=== PATIENT | female | born 1990 | race Caucasian/White ===

== ENCOUNTER 2016-10-28 20:10 | Emergency (ER) | payer OTHER ==
--- NOTE | 2016-10-28 21:15 | ED CLINICAL REPORT ---
Clinical Report - Physicians/Mid Levels [facility] [address] [place] [address] 10/28/2016 20:10 Patient: AILYN SOLORZANO Time Seen: 20:44; initial patient contact, initial documentation, patient care assumed. Arrived- By ambulance. Not in custody. Historian- patient. HISTORY OF PRESENT ILLNESS Chief Complaint: ANXIOUS and SELF INJURY and AGITATED and ANGRY. This started just prior to arrival. The patient has experienced situational problems related to significant other (other family members, everyone fighting lately). She has not exhibited a behavior change or is compliant with medication. 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 No recent drug use or alcohol consumption. Has been angry but eating or sleeping and not been depressed. She has had anxiety. No unusual behavior, delusions, suicidal thoughts or hallucinations. She inflicted self-injury. The symptoms are described as mild. An injury is present. Location- left forearm (pt bit herself). Similar symptoms previously: Recent medical care: Not recently seen/assessed. REVIEW OF SYSTEMS No chest pain or abdominal pain. All systems otherwise negative, except as recorded above. PAST HISTORY See nurses notes. ( PROBLEMS: Headache. Depression. Mental Illness. Cerebral Palsy. --20:18 Pablo, Sandy, R.N.). SOCIAL HISTORY Never smoker. History of occasional drug use: marijuana. No alcohol use. Has social support. Has place to stay. FAMILY HISTORY Negative. ADDITIONAL NOTES The nursing notes have been reviewed with agreement regarding the chief complaint, HPI, ROS, PMH and patient medications and allergies. PHYSICAL EXAM Appearance: Alert. No acute distress. Appearance is normal. Eyes: Pupils equal, round and reactive to light. Neck: Normal inspection. Neck supple. CVS: Normal heart rate and rhythm. Heart sounds normal. Respiratory: Breath sounds normal. Chest nontender. Abdomen: Soft and nontender. Back: No tenderness. Skin: Skin warm and dry. Normal skin color. Normal skin turgor. (superficial mild erythema bite amrik noted to L wrist/fa area, no break in skin). Extremities: Extremities exhibit normal ROM. No lower extremity edema. Psych / Neuro: Oriented X 3. Mood and affect normal. Speech normal. Cognition normal. Thought process and content normal. Insight and judgement normal. Cranial nerves normal (as tested). No cerebellar findings. No motor deficit. No sensory deficit. PROGRESS AND PROCEDURES Course of Care: pt has short rosa for narcs and er visits, see report for full details had discussion with pt re home issues, tx, pt denies thoughts of suicide, did admit to biting her arm out of frustration, denies biting anyone else, denies any more thoughts of self harm and really wants to go home spoke with nurse re dc, and nurse thinks pt is ok to be dc. Differential Diagnosis: Other possible considerations: psych, si, depression, anxiety, anger issues, self harm, human bite, substance abuse. Above considerations are based on history and physical exam. Differential diagnosis was discussed with patient. Disposition: Discharged home in good and improved condition (21:15). Condition: good and stable. CLINICAL IMPRESSION Anxiety reaction. INSTRUCTIONS Warnings: GENERAL WARNINGS: Return or contact your physician immediately if your condition worsens or changes unexpectedly, if not improving as expected, or if other problems arise. Specifically return if problem worsens. Follow-up: Follow up with your doctor in about three days as needed. Call for an appointment. Summary of care provided to patient. Understanding of the discharge instructions verbalized by patient. (Electronically signed by Madonna Ferrer A.R.N.P. 10/29/2016 12:55)
--- NOTE | 2016-10-28 21:15 | ED CLINICAL REPORT ---
Clinical Report - Physicians/Mid Levels [facility] [address] [place] [address] 10/28/2016 20:10 Patient: AILYN SOLORZANO Time Seen: 20:44; initial patient contact, initial documentation, patient care assumed. Arrived- By ambulance. Not in custody. Historian- patient. HISTORY OF PRESENT ILLNESS Chief Complaint: ANXIOUS and SELF INJURY and AGITATED and ANGRY. This started just prior to arrival. The patient has experienced situational problems related to significant other (other family members, everyone fighting lately). She has not exhibited a behavior change or is compliant with medication. (pt admitted specialist physicians have been to house several times over issues, pt does not want to be here, significant other called 911, ems recommended she come and family wanted her to come, so she came, but she does not want to be here). No recent drug use or alcohol consumption. Has been angry but eating or sleeping and not been depressed. She has had anxiety. No unusual behavior, delusions, suicidal thoughts or hallucinations. She inflicted self-injury. The symptoms are described as mild. An injury is present. Location- left forearm (pt bit herself). Similar symptoms previously: Recent medical care: Not recently seen/assessed. REVIEW OF SYSTEMS No chest pain or abdominal pain. All systems otherwise negative, except as recorded above. PAST HISTORY See nurses notes. ( PROBLEMS: Headache. Depression. Mental Illness. Cerebral Palsy. --20:18 Pablo, Sandy, R.N.). SOCIAL HISTORY Never smoker. History of occasional drug use: marijuana. No alcohol use. Has social support. Has place to stay. FAMILY HISTORY Negative. ADDITIONAL NOTES The nursing notes have been reviewed with agreement regarding the chief complaint, HPI, ROS, PMH and patient medications and allergies. PHYSICAL EXAM Appearance: Alert. No acute distress. Appearance is normal. Eyes: Pupils equal, round and reactive to light. Neck: Normal inspection. Neck supple. CVS: Normal heart rate and rhythm. Heart sounds normal. Respiratory: Breath sounds normal. Chest nontender. Abdomen: Soft and nontender. Back: No tenderness. Skin: Skin warm and dry. Normal skin color. Normal skin turgor. (superficial mild erythema bite amrik noted to L wrist/fa area, no break in skin). Extremities: Extremities exhibit normal ROM. No lower extremity edema. Psych / Neuro: Oriented X 3. Mood and affect normal. Speech normal. Cognition normal. Thought process and content normal. Insight and judgement normal. Cranial nerves normal (as tested). No cerebellar findings. No motor deficit. No sensory deficit. PROGRESS AND PROCEDURES Course of Care: pt has short rosa for narcs and er visits, see report for full details had discussion with pt re home issues, tx, pt denies thoughts of suicide, did admit to biting her arm out of frustration, denies biting anyone else, denies any more thoughts of self harm and really wants to go home spoke with nurse re dc, and nurse thinks pt is ok to be dc. Differential Diagnosis: Other possible considerations: psych, si, depression, anxiety, anger issues, self harm, human bite, substance abuse. Above considerations are based on history and physical exam. Differential diagnosis was discussed with patient. Disposition: Discharged home in good and improved condition (21:15). Condition: good and stable. CLINICAL IMPRESSION Anxiety reaction. INSTRUCTIONS Warnings: GENERAL WARNINGS: Return or contact your physician immediately if your condition worsens or changes unexpectedly, if not improving as expected, or if other problems arise. Specifically return if problem worsens. Follow-up: Follow up with your doctor in about three days as needed. Call for an appointment. Summary of care provided to patient. Understanding of the discharge instructions verbalized by patient. (Electronically signed by Madonna Ferrer A.R.N.P. 10/29/2016 12:55)
--- NOTE | 2016-10-28 21:15 | ED NURSING NOTES ---
Clinical Report - Nurses [facility] [address] [place] [address] 10/28/2016 20:10 [id number] Triage time 20:14 Oct 28 2016. Acuity: LEVEL 4. Chief Complaint: (self injury to left wrist) and STATED EMOTIONAL ABUSE. --20:19 [place], January, R.N. 20:13 10/28/16. BP: 123/72. RR: 16. Temp: 99.4 F. --20:19 , January, R.N. Weight: 51.2 kg stated. Height/Length: 57 inches Per Patient. BMI: 24.5. --20:12 , January, R.N. Medications LamoTRIgine Oral (Tablet Dispersible 25 mg) 1 tablet, day. PriLOSEC Oral 20 mg, daily. Prochlorperazine Maleate Oral 5 mg, daily. --20:15 January, R.N. Allergies Naproxen. Tramadol. Trazodone . --20:15 January, R.N. Rozerem. --20:15 January, R.N. Nortriptyline. --20:16 January, R.N. History Arrived by private vehicle. Historian: patient. Location of injuries: left wrist. SOCIAL HX: Never smoker. History of drug use: marijuana. No alcohol use. --20:19 , January, R.N. PROBLEMS: Headache. Depression. Mental Illness. Cerebral Palsy. --20:18 January, R.N. Interventions ID band on patient. To treatment room. --20:19 , January, R.N. PHYSICAL ASSESSMENT To room via stretcher. GENERAL / NEURO / PSYCH: Alert. Oriented X 4. Affect appears normal. Appears in pain. HEENT: Pupils equal, round and reactive to light. ( Headache). Mucous membranes are pink. RESPIRATORY: Respirations not labored. Chest nontender. Breath sounds within normal limits. CVS: Normal heart rate and rhythm. Pulses within normal limits. Capillary refill less than 2 seconds. GI / : Abdomen soft and nontender. Normal external genital inspection. EXTREMITIES: Extremities exhibit normal ROM. Neuro-vascular status intact to the extremity. Left forearm. Left wrist. SKIN: Skin is warm and dry. ( a few bite naranjo from herself). --20:20 Sandy Shah R.N. NURSING PROGRESS NOTES Monitoring of patient in place. Pulse oximeter applied; monitor alarms on. NIBP monitor applied; monitor alarms on. Reassurance given. Patient identifiers checked. Call light placed in reach. Side rails up x 2. Bed placed in lowest position. Brakes of bed on. Patient ready for evaluation- chart flagged. --20:22 Sandy Shah R.N. Reassurance given. Two patient identifiers checked. Call light placed in reach. Side rails up x 1. Bed placed in lowest position. Brakes of bed on. --22:11 Sandy Shah R.N. 22:00 10/28/16. BP: 125/76. HR: 110. RR: 17. O2 saturation: 100%. Temp: 98.6 F. Pain level now: 07/03. --22:11 Sandy Shah R.N. DISPOSITION / DISCHARGE Departure time: 2310 pm. Condition at departure: unchanged and stable. No learning barriers present. Discharge instructions provided and reviewed with the patient and spouse. Patient and spouse verbalized understanding. Written instructions provided in Mongolian. The patient was discharged home and accompanied by spouse. She left the Emergency Department in a wheelchair and via private vehicle. Spouse driving. ( Request for pain medications not addressed by provider prior to DC. Gave information to patient regarding OTC medication use. Patient stated that she understands especially since she has been trying to get off some of her medications.). --23:15 Sandy Shah R.N. 23:13 10/28/16. BP: 117/74. HR: 105. RR: 16. O2 saturation: 99%. Temp: 98.5 F. Pain level now: 07/03. --23:15 Sandy Shah R.N. Locked/Released at 10/29/2016 16:07 by Sandy Shah R.N.
--- NOTE | 2016-10-28 21:15 | ED ORDER SUMMARY ---
..... Patient: AILYN SOLORZANO OrderSheet [facility] VisitID: [id number] [address] [place] [address] 25y, F Registration Date/Time: 10/28/2016 ORDER SHEET Weight: 51.2 kg (stated) Allergies: Naproxen, Tramadol, Trazodone , Rozerem, Nortriptyline GENERAL ORDERS: Vitals (21:12 10/28/2016 HBtiffani A.R.N.P.) (Ack 21:15 LTapper) (22:10 [place] R.N.) MEDICATION ORDERS: IV FLUIDS: ORDER SHEET NOTES: [Electronically signed by Madonna Ferrer.R.N.P. (12:55 10/29/2016)] [Electronically signed by Sandy Shah R.N. (16:07 10/29/2016)] [Electronically locked/signed by Sandy Shah R.N. (16:07 10/29/2016)]
--- NOTE | 2016-10-28 21:15 | ED NURSING NOTES ---
Clinical Report - Nurses [facility] [address] [place] [address] 10/28/2016 20:10 [id number] TRI[facility] Triage time 20:14 Oct 28 2016. Acuity: LEVEL 4. Chief Complaint: (self injury to left wrist) and STATED EMOTIONAL ABUSE. --20:19 [place], January, R.N. 20:13 10/28/16. BP: 123/72. RR: 16. Temp: 99.4 F. --20:19 , January, R.N. Weight: 51.2 kg stated. Height/Length: 57 inches Per Patient. BMI: 24.5. --20:12 , January, R.N. Medications LamoTRIgine Oral (Tablet Dispersible 25 mg) 1 tablet, day. PriLOSEC Oral 20 mg, daily. Prochlorperazine Maleate Oral 5 mg, daily. --20:15 January, R.N. Allergies Naproxen. Tramadol. Trazodone . --20:15 January, R.N. Rozerem. --20:15 January, R.N. Nortriptyline. --20:16 January, R.N. History Arrived by private vehicle. Historian: patient. Location of injuries: left wrist. SOCIAL HX: Never smoker. History of drug use: marijuana. No alcohol use. --20:19 , January, R.N. PROBLEMS: Headache. Depression. Mental Illness. Cerebral Palsy. --20:18 January, R.N. Interventions ID band on patient. To treatment room. --20:19 , January, R.N. PHYSICAL ASSESSMENT To room via stretcher. GENERAL / NEURO / PSYCH: Alert. Oriented X 4. Affect appears normal. Appears in pain. HEENT: Pupils equal, round and reactive to light. ( Headache). Mucous membranes are pink. RESPIRATORY: Respirations not labored. Chest nontender. Breath sounds within normal limits. CVS: Normal heart rate and rhythm. Pulses within normal limits. Capillary refill less than 2 seconds. GI / : Abdomen soft and nontender. Normal external genital inspection. EXTREMITIES: Extremities exhibit normal ROM. Neuro-vascular status intact to the extremity. Left forearm. Left wrist. SKIN: Skin is warm and dry. ( a few bite naranjo from herself). --20:20 Sandy Shah R.N. NURSING PROGRESS NOTES Monitoring of patient in place. Pulse oximeter applied; monitor alarms on. NIBP monitor applied; monitor alarms on. Reassurance given. Patient identifiers checked. Call light placed in reach. Side rails up x 2. Bed placed in lowest position. Brakes of bed on. Patient ready for evaluation- chart flagged. --20:22 Sandy Shah R.N. Reassurance given. Two patient identifiers checked. Call light placed in reach. Side rails up x 1. Bed placed in lowest position. Brakes of bed on. --22:11 Sandy Shah R.N. 22:00 10/28/16. BP: 125/76. HR: 110. RR: 17. O2 saturation: 100%. Temp: 98.6 F. Pain level now: 07/03. --22:11 Sandy Shah R.N. DISPOSITION / DISCHARGE Departure time: 2310 pm. Condition at departure: unchanged and stable. No learning barriers present. Discharge instructions provided and reviewed with the patient and spouse. Patient and spouse verbalized understanding. Written instructions provided in Slovenian. The patient was discharged home and accompanied by spouse. She left the Emergency Department in a wheelchair and via private vehicle. Spouse driving. ( Request for pain medications not addressed by provider prior to DC. Gave information to patient regarding OTC medication use. Patient stated that she understands especially since she has been trying to get off some of her medications.). --23:15 Sandy Shah R.N. 23:13 10/28/16. BP: 117/74. HR: 105. RR: 16. O2 saturation: 99%. Temp: 98.5 F. Pain level now: 07/03. --23:15 Sandy Shah R.N. Locked/Released at 10/29/2016 16:07 by Sandy Shah R.N.
--- NOTE | 2016-10-28 21:15 | ED ORDER SUMMARY ---
..... Patient: AILYN SOLORZANO OrderSheet [facility] VisitID: [id number] [address] [place] [address] 25y, F Registration Date/Time: 10/28/2016 ORDER SHEET Weight: 51.2 kg (stated) Allergies: Naproxen, Tramadol, Trazodone , Rozerem, Nortriptyline GENERAL ORDERS: Vitals (21:12 10/28/2016 HBtiffani A.R.N.P.) (Ack 21:15 LTapper) (22:10 [place] R.N.) MEDICATION ORDERS: IV FLUIDS: ORDER SHEET NOTES: [Electronically signed by Madonna Ferrer.R.N.P. (12:55 10/29/2016)] [Electronically signed by Sandy Shah R.N. (16:07 10/29/2016)] [Electronically locked/signed by Sandy Shah R.N. (16:07 10/29/2016)]
--- NOTE | 2016-10-29 16:08 | ED MAR SUMMARY ---
..... Medication Administration Record [facility] [address] [place] [address] Patient: AILYN SOLORZANO Visit ID: [id number] 25y, F Weight: 51.2 kg Height/Length: 57 in BMI: 24.5 ALLERGIES: Nortriptyline, Rozerem, Naproxen, Tramadol, Trazodone
--- NOTE | 2016-10-29 16:08 | ED DISCHARGE INSTRUCTIONS ---
Patient: AILYN SOLORZANO General Instructions [facility] VisitID: [id number] [place] [address] 25y, F Registration Date/Time: 10/28/2016 Anxiety reaction. INSTRUCTIONS Warnings: GENERAL WARNINGS: Return or contact your physician immediately if your condition worsens or changes unexpectedly, if not improving as expected, or if other problems arise. Specifically return if problem worsens. Follow-up: Follow up with your doctor in about three days as needed. Call for an appointment. Summary of care provided to patient. Understanding of the discharge instructions verbalized by patient. ADDITIONAL INFORMATION Stress Reaction Anxiety is the feeling we all get when we think something bad might happen. It is a normal response to stress and usually causes only a mild reaction. When anxiety becomes more severe, emotions may interfere with daily life. In some cases, you may not even be aware of what it is youre anxious about! During an anxiety reaction, you may feel like you are helpless, nervous, depressed or irritable. Your body may show signs of anxiety in many ways. You may experience dry mouth, shakiness, dizziness, weakness, trouble breathing, chest pressure, headache, nausea, diarrhea, tiredness, inability to sleep or sexual problems. Home Care: 1) Try to locate the sources of stress in your life. They may not be obvious! These may include: -- Daily hassles of life which pile up (traffic jams, missed appointments, car troubles, etc.) -- Major life changes, both good (new baby, job promotion) and bad (loss of job, loss of loved one) -- Overload: feeling that you have too many responsibilities and can't take care of all of them at once -- Feeling helpless, feeling that your problems are beyond what youre able to solve 2) Notice how your body reacts to stress. Learn to listen to your body signals. This will help you take action before the stress becomes severe. 3) When you can, do something about the source of your stress. (Avoid hassles, limit the amount of change that happens in your life at one time and take a break when you feel overloaded). 4) Unfortunately, many stressful situations cannot be avoided. It is necessary to learn HOW TO MANAGE STRESS better. There are many proven methods that will reduce your anxiety. These include simple things like exercise, good nutrition and adequate rest. Also, there are certain techniques that are helpful: relaxation and breathing exercises, visualization, biofeedback and meditation. For more information about this, consult your doctor or go to a local bookstore and review the many books and tapes available on this subject. Follow Up If you feel that your anxiety is not responding to self-help measures, contact your doctor or make an appointment with a counselor. Get Prompt Medical Attention if any of the following occur: -- Your symptoms get worse -- Chest pain or trouble breathing -- Severe headache not relieved by rest and mild pain reliever -- Rapid or irregular heartbeat, fainting You have been given the following additional information: Anxiety Reaction (Electronically signed by Madonna Ferrer A.R.N.P. 10/29/2016 12:55)
--- NOTE | 2016-10-29 16:08 | ED MAR SUMMARY ---
..... Medication Administration Record [facility] [address] [place] [address] Patient: AILYN SOLORZANO Visit ID: [id number] 25y, F Weight: 51.2 kg Height/Length: 57 in BMI: 24.5 ALLERGIES: Nortriptyline, Rozerem, Naproxen, Tramadol, Trazodone
--- NOTE | 2016-10-29 16:08 | ED MED RECONCILIATION SUMMARY ---
Patient: AILYN SOLORZANO Medication Reconciliation Report [facility] VisitID: [id number] [address] [place] [address] 25y, F Registration Date/Time: 10/28/2016 Weight: 51.2 kg Height/Length: 57 in. BMI: 24.5 ALLERGIES: Naproxen, Nortriptyline, Rozerem, Tramadol, Trazodone The patient's Home Medications are listed below: THE FOLLOWING MEDICATIONS NEED TO BE RECONCILED: LamoTRIgine Oral (25 mg) 1 tablet, day PriLOSEC Oral 20 mg, daily Prochlorperazine Maleate Oral 5 mg, daily The source(s) of the original Home Medication information: Not obtained. The following Medications were given to the patient in the Emergency Department: None. The following Medications were prescribed to the patient: None.
--- NOTE | 2016-10-29 16:08 | ED MED RECONCILIATION SUMMARY ---
Patient: AILYN SOLORZANO Medication Reconciliation Report [facility] VisitID: [id number] [address] [place] [address] 25y, F Registration Date/Time: 10/28/2016 Weight: 51.2 kg Height/Length: 57 in. BMI: 24.5 ALLERGIES: Naproxen, Nortriptyline, Rozerem, Tramadol, Trazodone The patient's Home Medications are listed below: THE FOLLOWING MEDICATIONS NEED TO BE RECONCILED: LamoTRIgine Oral (25 mg) 1 tablet, day PriLOSEC Oral 20 mg, daily Prochlorperazine Maleate Oral 5 mg, daily The source(s) of the original Home Medication information: Not obtained. The following Medications were given to the patient in the Emergency Department: None. The following Medications were prescribed to the patient: None.
== END 2016-10-28 23:15 | disposition home or self-care (01) ==
LOC: ED SRH 20:10
DX: F41.1 Generalized anxiety disorder (principal); G80.9 Cerebral palsy, unspecified; Z79.899 Other long term (current) drug therapy; Z88.5 Allergy status to narcotic agent; Z88.6 Allergy status to analgesic agent